=== PATIENT | female | born 1995 | race African-American/Black ===

== ENCOUNTER 2021-05-21 16:11 | Emergency (ER) | payer OTHER ==
[~2021-05-21] VITALS: Ht 165.1 cm; Wt 72.7 kg
[2021-05-21] MEDS ORDERED: METR-265 PO (19:55)
[2021-05-21] MEDS ORDERED: metroNIDAZOLE (FLAGYL) 500MG TABLET PO ONE (19:55)
[2021-05-21 20:00] LABS: URINE PREG TEST NEGATIVE (NEGATIVE)
[2021-05-21 20:01] VITALS: BP 122/74
[2021-05-21 20:07] LABS: GC DNA AMPLIFICATION NEGATIVE (NEGATIVE)
== END 2021-05-21 20:02 | disposition home or self-care (01) ==
LOC: M ED 16:11
DX: A59.01 Trichomonal vulvovaginitis (principal); D57.3 Sickle-cell trait; Z88.0 Allergy status to penicillin; Z88.8 Allergy status to other drugs, medicaments and biological substances

== ENCOUNTER 2021-06-21 10:15 | Emergency (ER) | payer OTHER ==
[~2021-06-21] VITALS: Ht 165.1 cm; Wt 76.6 kg
[~2021-06-21 10:15] MED LIST: METR-265 PO
[2021-06-21] MEDS ORDERED: CURA1CRE2 (11:27)
[2021-06-21 12:41] LABS: BASO # 0.1 10^3/uL (0.0-0.2); BASO % 1.1 % (0.0-1.0); EOS # 0.1 10^3/uL (0.0-0.5); HEMATOCRIT 36.6 % (36.0-47.0); HEMOGLOBIN 12.2 g/dl (12.0-15.5); LYMPH # 1.5 10^3/uL (1.5-5.0); LYMPH % 32.4 % (24.0-44.0); MEAN CORPUSCULAR HEMOGLOBIN 28.4 pg (27.0-33.0); MEAN CORPUSCULAR HGB CONC 33.3 g/dl (32.0-36.5); MEAN CORPUSCULAR VOLUME 85.3 fl (80.0-96.0); MONO # 0.7 10^3/uL (0.0-0.8); MONO % 14.3 % (2.0-8.0); NEUTROPHILS # 2.3 10^3/uL (1.5-8.5); NEUTROPHILS % 49.2 % (36.0-66.0); PLATELET COUNT, AUTOMATED 291 10^3/uL (150-450); RED BLOOD COUNT 4.29 10^6/uL (4.00-5.40); WHITE BLOOD COUNT 4.6 10^3/uL (4.0-10.0)
[2021-06-21 13:16] LABS: ALBUMIN 3.8 GM/DL (3.2-5.2); BILIRUBIN,DIRECT 0.2 MG/DL (0.0-0.2); BILIRUBIN,TOTAL 0.7 MG/DL (0.2-1.0); TOTAL PROTEIN 7.5 GM/DL (6.4-8.2)
[2021-06-21] MEDS ORDERED: VALT1TAB PO (13:23)
[2021-06-21 14:10] VITALS: BP 118/68
== END 2021-06-21 14:10 | disposition home or self-care (01) ==
LOC: M ED 10:15
DX: R59.9 Enlarged lymph nodes, unspecified (principal); B02.9 Zoster without complications; Z88.0 Allergy status to penicillin; Z88.8 Allergy status to other drugs, medicaments and biological substances

== ENCOUNTER 2021-08-27 22:54 | Emergency (ER) | payer OTHER ==
[~2021-08-27] VITALS: Ht 165.1 cm; Wt 75.9 kg
[~2021-08-27 22:54] MED LIST changes: +CURA1CRE2; +VALT1TAB PO
[2021-08-28 00:27] LABS: BASO % 0.5 % (0.0-1.0); EOS # 0.2 10^3/uL (0.0-0.5); EOS % 3.3 % (0.0-3.0); HEMATOCRIT 35.5 % (36.0-47.0); LYMPH # 1.8 10^3/uL (1.5-5.0); LYMPH % 30.9 % (24.0-44.0); MEAN CORPUSCULAR HEMOGLOBIN 29.1 pg (27.0-33.0); MEAN CORPUSCULAR HGB CONC 33.8 g/dl (32.0-36.5); MONO # 0.7 10^3/uL (0.0-0.8); MONO % 11.9 % (2.0-8.0); NEUTROPHILS % 53.2 % (36.0-66.0); PLATELET COUNT, AUTOMATED 253 10^3/uL (150-450); RED BLOOD COUNT 4.13 10^6/uL (4.00-5.40); WHITE BLOOD COUNT 5.7 10^3/uL (4.0-10.0)
[2021-08-28 00:56] LABS: BLOOD UREA NITROGEN 14 MG/DL (7-18); CALCIUM LEVEL 8.9 MG/DL (8.5-10.1); CARBON DIOXIDE LEVEL 28 MEQ/L (21-32); CHLORIDE LEVEL 107 MEQ/L (98-107); GLOMERULAR FILTRATION RATE > 60.0 (>60); GLUCOSE, FASTING 93 MG/DL (70-100); SODIUM LEVEL 140 MEQ/L (136-145)
[2021-08-28 02:00] VITALS: BP 113/58
[2021-08-28] MEDS ORDERED: FLOM0.4C39 PO (02:28)
[2021-08-28] MEDS ORDERED: TRAM50TA2 PO (02:29)
== END 2021-08-28 02:38 | disposition home or self-care (01) ==
LOC: M ED 22:54
DX: D25.9 Leiomyoma of uterus, unspecified (principal); N20.0 Calculus of kidney; Z79.899 Other long term (current) drug therapy; Z88.0 Allergy status to penicillin; Z88.8 Allergy status to other drugs, medicaments and biological substances; F17.210 Nicotine dependence, cigarettes, uncomplicated

== ENCOUNTER 2021-11-07 16:38 | Emergency (ER) | payer OTHER ==
[~2021-11-07] VITALS: Ht 165.1 cm; Wt 73.9 kg
[~2021-11-07 16:38] MED LIST changes: +FLOM0.4C39 PO; +TRAM50TA2 PO
[2021-11-07 18:56] LABS: BASO # 0.1 10^3/uL (0.0-0.2); BASO % 0.9 % (0.0-1.0); EOS # 0.3 10^3/uL (0.0-0.5); EOS % 5.3 % (0.0-3.0); HEMATOCRIT 35.1 % (36.0-47.0); HEMOGLOBIN 11.5 g/dl (12.0-15.5); LYMPH # 2.6 10^3/uL (1.5-5.0); LYMPH % 47.7 % (24.0-44.0); MEAN CORPUSCULAR HEMOGLOBIN 28.1 pg (27.0-33.0); MEAN CORPUSCULAR HGB CONC 32.8 g/dl (32.0-36.5); MEAN CORPUSCULAR VOLUME 85.8 fl (80.0-96.0); MONO # 0.6 10^3/uL (0.0-0.8); MONO % 10.5 % (2.0-8.0); NEUTROPHILS # 1.9 10^3/uL (1.5-8.5); NEUTROPHILS % 35.4 % (36.0-66.0); PLATELET COUNT, AUTOMATED 374 10^3/uL (150-450); RED BLOOD COUNT 4.09 10^6/uL (4.00-5.40); WHITE BLOOD COUNT 5.5 10^3/uL (4.0-10.0)
[2021-11-07 19:13] LABS: HCG, SERUM QUALITATIVE NEGATIVE (NEGATIVE)
[2021-11-07 19:21] LABS: ALBUMIN 3.9 GM/DL (3.2-5.2); ALT/SGPT 45 U/L (12-78); BILIRUBIN,DIRECT 0.2 MG/DL (0.0-0.2); BILIRUBIN,TOTAL 0.8 MG/DL (0.2-1.0); BLOOD UREA NITROGEN 13 MG/DL (7-18); CALCIUM LEVEL 9.3 MG/DL (8.5-10.1); CARBON DIOXIDE LEVEL 25 MEQ/L (21-32); CHLORIDE LEVEL 106 MEQ/L (98-107); CREATININE FOR GFR 0.96 MG/DL (0.55-1.30); GLOMERULAR FILTRATION RATE > 60.0 (>60); GLUCOSE, FASTING 85 MG/DL (70-100); LIPASE 89 U/L (73-393); POTASSIUM SERUM 4.2 MEQ/L (3.5-5.1); SODIUM LEVEL 136 MEQ/L (136-145); TOTAL PROTEIN 7.6 GM/DL (6.4-8.2)
[2021-11-07 20:46] VITALS: BP 127/77
== END 2021-11-07 20:46 | disposition home or self-care (01) ==
LOC: M ED 16:38
DX: D25.9 Leiomyoma of uterus, unspecified (principal); Z88.0 Allergy status to penicillin; Z88.8 Allergy status to other drugs, medicaments and biological substances

== ENCOUNTER 2022-03-19 06:45 | Inpatient (IN) | payer OTHER ==
[~2022-03-19] VITALS: Ht 165.1 cm; Wt 80.2 kg
[2022-03-19] VITALS (8 sets, daily range): BP systolic 98–109; BP diastolic 53–65
[~2022-03-19 06:45] MED LIST changes: +ACETAMINOPHEN *IV* 1,000 MG IV ONE; +CLINDAMYCIN 900 MG in IV 1 EA IV ONE; +GENTAMICIN 100 MG in IV 1 EA IV ONE; +JOINCAP2 PO; +VITMTA PO
[2022-03-19] MEDS ORDERED: BUPIVACAINE HCL 0.5% 10ML VIAL IM ONE ×2 (07:00→07:50)
[2022-03-19] MEDS ORDERED: LIDOCAINE 1% SDV 5ML VIAL PN ONE (07:00)
[2022-03-19] MEDS ORDERED: fentaNYL 100 MCG/2 ML INJECTION IV PRN ×2 (07:00→11:50)
[2022-03-19] MEDS ORDERED: BUPIVACAINE LIPOSOME/PF 1.3% 20ML VIAL (13.3MG/ML)(EXPAREL) PN ONE (07:00)
[2022-03-19] MEDS ORDERED: LR 1,000 ML IV SCH ×2 (07:35→11:50)
[2022-03-19 07:50] LABS: HEMATOCRIT 35.1 % (36.0-47.0); HEMOGLOBIN 11.5 g/dl (12.0-15.5); MEAN CORPUSCULAR HEMOGLOBIN 26.6 pg (27.0-33.0); MEAN CORPUSCULAR HGB CONC 32.8 g/dl (32.0-36.5); MEAN CORPUSCULAR VOLUME 81.3 fl (80.0-96.0); PLATELET COUNT, AUTOMATED 309 10^3/uL (150-450); RED BLOOD COUNT 4.32 10^6/uL (4.00-5.40); WHITE BLOOD COUNT 3.9 10^3/uL (4.0-10.0)
[2022-03-19] MEDS ORDERED: VASOPRESSIN INJ 20UNITS/ML 1ML VIAL As Ordered ONE (08:13)
[2022-03-19] MEDS: MIDAZOLAM INJ 2MG/2ML VIAL (J2250 PER 1MG) IV PRN ×2 (08:16→08:24)
[2022-03-19] MEDS ORDERED: propofoL 200 MG/20 ML VIAL As Ordered ONE (08:28)
[2022-03-19] MEDS ORDERED: LIDOCAINE 2% 100MG/5ML SDV (FOR ANES.) As Ordered ONE (08:29)
[2022-03-19] MEDS ORDERED: ROCURONIUM BROMIDE 50MG/5ML VIAL As Ordered ONE ×2 (08:29→09:03)
[2022-03-19] MEDS ORDERED: fentaNYL 100 MCG/2 ML INJECTION As Ordered ONE (08:30)
[2022-03-19] MEDS ORDERED: ONDANSETRON 4MG 2ML VIAL As Ordered ONE (08:51)
[2022-03-19] MEDS ORDERED: ACETAMINOPHEN 1000MG 100ML IV BAG As Ordered ONE (08:53)
[2022-03-19] MEDS ORDERED: SUGAMMADEX SODIUM 500 MG/5 ML VIAL (BRIDION) As Ordered ONE (08:53)
[2022-03-19] MEDS ORDERED: ePHEDrine SULFATE 25 MG/5 ML(5MG/ML) SYRINGE As Ordered ONE (09:46)
[2022-03-19] MEDS ORDERED: oxyCODONE 5MG TAB PO PRN ×3 (11:50)
[2022-03-19] MEDS ORDERED: METOCLOPRAMIDE INJ 10MG/2ML VIAL IV PRN (11:50)
[2022-03-19] MEDS ORDERED: ONDANSETRON 4MG 2ML VIAL IV PRN ×2 (11:50)
[2022-03-19] MEDS ORDERED: PROMETHAZINE 25MG/ML 1ML VIAL IV PRN (11:50)
[2022-03-19] MEDS ORDERED: EPIDURAL/PCA KEYS XX PRN (12:00)
[2022-03-19] MEDS ORDERED: diphenhydrAMINE 50MG/ML VIAL IV PRN (12:00)
[2022-03-19] MEDS: HYDROMORPHONE HCL 0.5 MG/ 0.5 ML SYRINGE (J1170 PER 1) IV PRN ×2 (12:00→12:13)
[2022-03-19] MEDS ORDERED: NALOXONE INJ 0.4MG/1ML VIAL IV PRN (12:00)
[2022-03-19] MEDS: LR 1,000 ML IV SCH ×2 (13:43→21:27)
[2022-03-19] MEDS ORDERED: MORPHINE 1MG/ML IN 0.9% NACL 100ML IV BAG IV PRN (14:00)
[2022-03-19] MEDS ORDERED: ACETAMINOPHEN 1000MG 100ML IV BAG IV SCH (16:00)
[2022-03-19] MEDS: GABAPENTIN 300 MG CAP PO SCH ×2 (16:09→21:26)
[2022-03-19] MEDS: ACETAMINOPHEN *IV* 1,000 MG IV SCH ×4 (16:10→22:59)
[2022-03-19 18:02] LABS: HIV 1&2 SCREEN CENTAUR NEGATIVE (NEGATIVE)
[2022-03-19 18:09] LABS: HEPATITIS C VIRUS ABY INDEX 0.1 INDEX (<0.8)
[2022-03-19] MEDS: DOCUSATE SODIUM 100MG CAPSULE PO SCH (21:26)
[2022-03-20] VITALS: BP 97/53
[2022-03-20 04:00] VITALS: BP 106/56
[2022-03-20] MEDS: ACETAMINOPHEN *IV* 1,000 MG IV SCH ×2 (04:00)
[2022-03-20] MEDS: LR 1,000 ML IV SCH (04:26)
[2022-03-20 07:58] LABS: BASO % 0.2 % (0.0-1.0); EOS % 0.1 % (0.0-3.0); HEMATOCRIT 29.6 % (36.0-47.0); HEMOGLOBIN 9.7 g/dl (12.0-15.5); LYMPH # 1.9 10^3/uL (1.5-5.0); MEAN CORPUSCULAR HEMOGLOBIN 27.1 pg (27.0-33.0); MEAN CORPUSCULAR HGB CONC 32.8 g/dl (32.0-36.5); MEAN CORPUSCULAR VOLUME 82.7 fl (80.0-96.0); MONO # 1.2 10^3/uL (0.0-0.8); MONO % 9.1 % (2.0-8.0); NEUTROPHILS # 9.6 10^3/uL (1.5-8.5); NEUTROPHILS % 75.2 % (36.0-66.0); PLATELET COUNT, AUTOMATED 289 10^3/uL (150-450); RED BLOOD COUNT 3.58 10^6/uL (4.00-5.40); WHITE BLOOD COUNT 12.8 10^3/uL (4.0-10.0)
[2022-03-20 08:00] VITALS: BP 102/67
[2022-03-20] MEDS: GABAPENTIN 300 MG CAP PO SCH ×3 (08:31→20:12)
[2022-03-20] MEDS: DOCUSATE SODIUM 100MG CAPSULE PO SCH ×2 (08:31→20:12)
[2022-03-20] MEDS ORDERED: ONDANSETRON 4MG ORAL DISINTEGRATING TAB PO PRN (09:00)
[2022-03-20] MEDS ORDERED: HYDROmorphone 2 MG TAB PO PRN ×2 (09:00)
[2022-03-20] MEDS ORDERED: oxyCODONE 5MG TAB PO PRN (09:35)
[2022-03-20] MEDS: oxyCODONE 5MG TAB PO PRN ×2 (10:28→17:28)
[2022-03-20] MEDS: SIMETHICONE 80MG CHEW TAB PO PRN ×2 (11:28→16:29)
[2022-03-20] MEDS: ACETAMINOPHEN 500 MG TAB PO SCH ×3 (11:28→23:54)
[2022-03-20 12:00] VITALS: BP 102/63
[2022-03-20] MEDS ORDERED: oxyCODONE 5MG TAB PO ONE (12:35)
[2022-03-20 16:00] VITALS: BP 103/58
[2022-03-20 20:00] VITALS: BP 114/66
[2022-03-21] VITALS: BP 105/56
[2022-03-21 04:00] VITALS: BP 109/74
[2022-03-21] MEDS: ACETAMINOPHEN 500 MG TAB PO SCH (05:05)
[2022-03-21 08:00] VITALS: BP 112/58
[2022-03-21] MEDS: GABAPENTIN 300 MG CAP PO SCH (08:19)
[2022-03-21] MEDS: DOCUSATE SODIUM 100MG CAPSULE PO SCH (08:19)
[2022-03-21] MEDS: SIMETHICONE 80MG CHEW TAB PO PRN (08:19)
[2022-03-21] MEDS ORDERED: OXYC-517 PO (11:26)
[2022-03-21] MEDS ORDERED: ACET-683 PO (11:26)
[2022-03-21] MEDS ORDERED: GABA-282 PO (11:26)
== END 2022-03-21 12:30 | disposition home or self-care (01) | DRG 743 ==
LOC: M OR 06:45 → EDSTATUS 08:30 → M PED 13:45
PROVIDERS: ADMIT Obstetrics & Gynecology; ATTEND Obstetrics & Gynecology
PROC: 0UB90ZZ Excision of Uterus, Open Approach (ICD-10-PCS; principal; 2022-03-19 08:30)
DX: D25.9 Leiomyoma of uterus, unspecified (principal); Z88.0 Allergy status to penicillin; Z88.6 Allergy status to analgesic agent

== ENCOUNTER 2022-07-14 16:45 | Emergency (ER) | payer OTHER ==
[~2022-07-14] VITALS: Ht 165.1 cm; Wt 79.1 kg
[2022-07-14 16:45] VITALS: BP 119/75
[~2022-07-14 16:45] MED LIST changes: +ACET-683 PO; -ACETAMINOPHEN *IV* 1,000 MG IV ONE; -CLINDAMYCIN 900 MG in IV 1 EA IV ONE; +GABA-282 PO; -GENTAMICIN 100 MG in IV 1 EA IV ONE; +OXYC-517 PO
[2022-07-14] MEDS ORDERED: D 50CAP2 (16:52)
[2022-07-14 18:01] LABS: BASO % 0.7 % (0.0-1.0); EOS # 0.1 10^3/uL (0.0-0.5); EOS % 1.3 % (0.0-3.0); HEMATOCRIT 38.8 % (36.0-47.0); HEMOGLOBIN 12.4 g/dl (12.0-15.5); LYMPH # 2.1 10^3/uL (1.5-5.0); LYMPH % 34.2 % (24.0-44.0); MEAN CORPUSCULAR HEMOGLOBIN 24.8 pg (27.0-33.0); MEAN CORPUSCULAR VOLUME 77.6 fl (80.0-96.0); MONO # 0.5 10^3/uL (0.0-0.8); MONO % 8.8 % (2.0-8.0); NEUTROPHILS # 3.3 10^3/uL (1.5-8.5); NEUTROPHILS % 54.7 % (36.0-66.0); PLATELET COUNT, AUTOMATED 385 10^3/uL (150-450)
[2022-07-14 18:32] LABS: ALBUMIN 4.2 G/DL (3.2-5.2); ALKALINE PHOSPHATASE 96 U/L (46-116); ALT/SGPT 92 U/L (7.0-40); AST/SGOT 77 U/L (<34); BILIRUBIN,DIRECT 0.2 MG/DL (<0.4); BLOOD UREA NITROGEN 8 MG/DL (9-23); CALCIUM LEVEL 9.1 MG/DL (8.5-10.1); CARBON DIOXIDE LEVEL 26 MMOL/L (20-31); CHLORIDE LEVEL 103 MMOL/L (98-107); CREATININE FOR GFR 0.78 MG/DL (0.55-1.30); GLOMERULAR FILTRATION RATE > 60.0 (>60); GLUCOSE, FASTING 89 MG/DL (60-100); LIPASE 28 U/L (12-53); SODIUM LEVEL 137 MMOL/L (136-145); TOTAL PROTEIN 8.5 G/DL (5.7-8.2)
[2022-07-14 18:43] LABS: HCG, SERUM QUALITATIVE NEGATIVE (NEGATIVE)
[2022-07-14] MEDS ORDERED: ONDANSETRON 4MG 2ML VIAL IV ONE (19:15)
[2022-07-14] MEDS ORDERED: ISOVUE-370 76% 100ML VIAL As Ordered ONE (19:21)
[2022-07-14 19:32] LABS: RSV AMPLIFICATION NEGATIVE (NEGATIVE)
[2022-07-14] MEDS: MORPHINE 2 MG/ML 1ML VIAL IV PRN ×2 (19:55→21:19)
[2022-07-14] MEDS ORDERED: PERCOCET 5MG/325MG TAB PO ONE (20:30)
[2022-07-14 22:53] LABS: GC DNA AMPLIFICATION NEGATIVE (NEGATIVE)
== END 2022-07-14 23:41 | disposition home or self-care (01) ==
LOC: M ED 16:45
DX: R10.2 Pelvic and perineal pain (principal); D25.9 Leiomyoma of uterus, unspecified; D57.3 Sickle-cell trait; Z88.0 Allergy status to penicillin; Z88.6 Allergy status to analgesic agent
CPT/HCPCS: 36415; 74177; 76830; 76856; 80048; 80076; 81001; 83605; 83690; 84703; 85025; 87210; 87631; 87661; 87810; 87850; 93041; 93976; 96365; 96366; 96375; 99284; Q9967

== ENCOUNTER 2022-08-01 21:26 | Emergency (ER) | payer OTHER ==
[~2022-08-01] VITALS: Ht 165.1 cm; Wt 75.5 kg
[~2022-08-01 21:26] MED LIST changes: +D 50CAP2
[2022-08-01 21:27] VITALS: BP 127/83
== END 2022-08-02 01:16 | disposition left against medical advice (07) ==
LOC: M ED 21:26
DX: G43.909 Migraine, unspecified, not intractable, without status migrainosus (principal); Z53.21 Procedure and treatment not carried out due to patient leaving prior to being seen by health care provider

== ENCOUNTER 2022-08-10 09:32 | Emergency (ER) | payer OTHER ==
[~2022-08-10] VITALS: Ht 165.1 cm; Wt 76.0 kg
[2022-08-10] MEDS ORDERED: VITMTA PO (09:47)
[2022-08-10] MEDS ORDERED: ACETAMINOPHEN TAB 650MG DOSE (2X325MG) PO ONE (10:45)
[2022-08-10 11:17] LABS: BASO # 0.1 10^3/uL (0.0-0.2); BASO % 0.9 % (0.0-1.0); EOS % 0.5 % (0.0-3.0); HEMATOCRIT 37.9 % (36.0-47.0); HEMOGLOBIN 12.1 g/dl (12.0-15.5); LYMPH # 1.3 10^3/uL (1.5-5.0); LYMPH % 23.7 % (24.0-44.0); MEAN CORPUSCULAR HEMOGLOBIN 24.6 pg (27.0-33.0); MEAN CORPUSCULAR HGB CONC 31.9 g/dl (32.0-36.5); MONO # 0.5 10^3/uL (0.0-0.8); MONO % 8.8 % (2.0-8.0); NEUTROPHILS # 3.7 10^3/uL (1.5-8.5); NEUTROPHILS % 65.9 % (36.0-66.0); PLATELET COUNT, AUTOMATED 385 10^3/uL (150-450); RED BLOOD COUNT 4.92 10^6/uL (4.00-5.40); WHITE BLOOD COUNT 5.6 10^3/uL (4.0-10.0)
[2022-08-10 11:46] LABS: ALBUMIN 4.4 G/DL (3.2-5.2); ALKALINE PHOSPHATASE 146 U/L (46-116); ALT/SGPT 154 U/L (7.0-40); AST/SGOT 69 U/L (<34); BILIRUBIN,TOTAL 1.7 MG/DL (0.3-1.2); BLOOD UREA NITROGEN 7 MG/DL (9-23); CALCIUM LEVEL 9.9 MG/DL (8.5-10.1); CARBON DIOXIDE LEVEL 25 MMOL/L (20-31); CHLORIDE LEVEL 104 MMOL/L (98-107); CREATININE FOR GFR 0.83 MG/DL (0.55-1.30); GLOMERULAR FILTRATION RATE > 60.0 (>60); GLUCOSE, FASTING 78 MG/DL (60-100); PHOSPHORUS LEVEL 4.2 MG/DL (2.5-4.9); POTASSIUM SERUM 4.5 MMOL/L (3.5-5.1); SODIUM LEVEL 137 MMOL/L (136-145); TOTAL PROTEIN 8.1 G/DL (5.7-8.2)
[2022-08-10 11:48] LABS: THYROID STIMULATING HORMONE 0.725 uIU/ML (0.55-4.78)
[2022-08-10] MEDS ORDERED: ISOVUE-370 76% 100ML VIAL As Ordered ONE (12:12)
[2022-08-10 12:53] VITALS: BP 132/76
== END 2022-08-10 12:55 | disposition home or self-care (01) ==
LOC: M ED 09:32
DX: F41.9 Anxiety disorder, unspecified (principal); D25.9 Leiomyoma of uterus, unspecified; K76.0 Fatty (change of) liver, not elsewhere classified; Z88.5 Allergy status to narcotic agent; Z88.0 Allergy status to penicillin; Z79.899 Other long term (current) drug therapy
CPT/HCPCS: 36415; 74177; 76856; 80053; 81001; 83735; 84100; 84443; 85025; 99284; Q9967

== ENCOUNTER 2022-10-01 02:04 | Emergency (ER) | payer OTHER ==
[~2022-10-01] VITALS: Ht 165.1 cm; Wt 72.7 kg
[2022-10-01 08:58] LABS: BASO % 0.6 % (0.0-1.0); EOS # 0.1 10^3/uL (0.0-0.5); EOS % 2.2 % (0.0-3.0); HEMATOCRIT 36.9 % (36.0-47.0); HEMOGLOBIN 11.9 g/dl (12.0-15.5); LYMPH # 1.7 10^3/uL (1.5-5.0); LYMPH % 32.2 % (24.0-44.0); MEAN CORPUSCULAR HEMOGLOBIN 25.6 pg (27.0-33.0); MEAN CORPUSCULAR HGB CONC 32.2 g/dl (32.0-36.5); MEAN CORPUSCULAR VOLUME 79.4 fl (80.0-96.0); MONO # 0.6 10^3/uL (0.0-0.8); MONO % 10.8 % (2.0-8.0); NEUTROPHILS # 2.9 10^3/uL (1.5-8.5); NEUTROPHILS % 53.8 % (36.0-66.0); PLATELET COUNT, AUTOMATED 373 10^3/uL (150-450); RED BLOOD COUNT 4.65 10^6/uL (4.00-5.40); WHITE BLOOD COUNT 5.4 10^3/uL (4.0-10.0)
[2022-10-01 09:30] LABS: ALBUMIN 4.4 G/DL (3.2-5.2); ALKALINE PHOSPHATASE 221 U/L (46-116); ALT/SGPT 228 U/L (7.0-40); AST/SGOT 236 U/L (<34); BILIRUBIN,DIRECT 0.2 MG/DL (<0.4); BILIRUBIN,TOTAL 0.7 MG/DL (0.3-1.2); BLOOD UREA NITROGEN 10 MG/DL (9-23); CALCIUM LEVEL 10.6 MG/DL (8.5-10.1); CARBON DIOXIDE LEVEL 24 MMOL/L (20-31); CHLORIDE LEVEL 104 MMOL/L (98-107); CREATININE FOR GFR 0.68 MG/DL (0.55-1.30); GLOMERULAR FILTRATION RATE > 60.0 (>60); GLUCOSE, FASTING 81 MG/DL (60-100); POTASSIUM SERUM 4.7 MMOL/L (3.5-5.1); SODIUM LEVEL 138 MMOL/L (136-145); TOTAL PROTEIN 8.3 G/DL (5.7-8.2)
[2022-10-01 09:59] LABS: ACETAMINOPHEN LEVEL < 2.0 UG/ML (10.0-20.0)
[2022-10-01 10:19] LABS: HEPATITIS B SURFACE ANTIGEN NEGATIVE (NEGATIVE)
[2022-10-01 10:40] LABS: HEPATITIS B CORE ANTIBODY IGM NEGATIVE (NEGATIVE); HEPATITIS C VIRUS ABY INDEX 0.07 INDEX (<0.8)
[2022-10-01 11:50] VITALS: BP 117/74; TEMP 98.2; O2SAT 100
== END 2022-10-01 11:54 | disposition home or self-care (01) ==
LOC: M ED 02:04
DX: R10.9 Unspecified abdominal pain (principal); K75.81 Nonalcoholic steatohepatitis (NASH); R74.01 Elevation of levels of liver transaminase levels; Z88.6 Allergy status to analgesic agent; Z88.0 Allergy status to penicillin; Z79.899 Other long term (current) drug therapy

== ENCOUNTER → 2022-11-28 | Outpatient (CLI) | payer OTHER | LOC: M RAD 07:46 | PROVIDERS: ATTEND Internal Medicine Gastroenterology | DX: R79.89 Other specified abnormal findings of blood chemistry (principal); R10.9 Unspecified abdominal pain ==

== ENCOUNTER → 2023-05-07 | Outpatient (CLI) | payer OTHER ==
[~2023-05-07] VITALS: Ht 162.6 cm; Wt 73.0 kg
[~2023-05-07] MED LIST changes: +ALBUTEROL SULFATE 2.5MG/0.5ML INH NEB SOLN INH PRN; +EPINEPHrine INJ 1 MG/ML 1ML AMP IM PRN; +NS 1,000 ML IV SCH; +diphenhydrAMINE 50MG/ML VIAL IV PRN; +methylPREDNISolone 125MG 2ML VIAL IV PRN
[2023-05-07 08:28] VITALS: BP 118/55; O2SAT 100
[2023-05-07] MEDS: IRON SUCROSE 25 MG in NS 23.75 ML IV ONE (09:05)
[2023-05-07] MEDS: IRON SUCROSE 275 MG in NS 250 ML IV ONE (09:57)
[2023-05-07 10:00] VITALS: BP 117/70; O2SAT 100
[2023-05-07 11:34] VITALS: BP 121/79; O2SAT 98
== END ==
LOC: M INFU 08:25
PROVIDERS: ATTEND Obstetrics & Gynecology
DX: D64.9 Anemia, unspecified (principal); Z88.0 Allergy status to penicillin; Z88.6 Allergy status to analgesic agent
CPT/HCPCS: 96365; 96366; J1756

== ENCOUNTER → 2023-05-12 | Outpatient (CLI) | payer OTHER ==
[~2023-05-12] MED LIST changes: -ALBUTEROL SULFATE 2.5MG/0.5ML INH NEB SOLN INH PRN; +E-Z-GAS II EFFERVESCENT PACKET (SODIUM BICARB./CITRIC ACID/SIMETHICONE) As Ordered ONE; +E-Z-HD 98% w/w 340GM SUSP BTL As Ordered ONE; +E-Z-PAQUE 96% w/w SUSP 176GM BTL As Ordered ONE; -EPINEPHrine INJ 1 MG/ML 1ML AMP IM PRN; -NS 1,000 ML IV SCH; -diphenhydrAMINE 50MG/ML VIAL IV PRN; -methylPREDNISolone 125MG 2ML VIAL IV PRN
== END ==
LOC: M RAD 09:07
PROVIDERS: ATTEND Physician Assistant
DX: K21.9 Gastro-esophageal reflux disease without esophagitis (principal)

== ENCOUNTER 2023-05-14 08:00 | Outpatient (CLI) | payer OTHER ==
[~2023-05-14] VITALS: Ht 162.6 cm; Wt 73.0 kg
[2023-05-14] MEDS: NS 1,000 ML IV SCH (06:00)
[~2023-05-14 08:00] MED LIST changes: +ALBUTEROL SULFATE 2.5MG/0.5ML INH NEB SOLN INH PRN; -E-Z-GAS II EFFERVESCENT PACKET (SODIUM BICARB./CITRIC ACID/SIMETHICONE) As Ordered ONE; -E-Z-HD 98% w/w 340GM SUSP BTL As Ordered ONE; -E-Z-PAQUE 96% w/w SUSP 176GM BTL As Ordered ONE; +EPINEPHrine INJ 1 MG/ML 1ML AMP IM PRN; +diphenhydrAMINE 50MG/ML VIAL IV PRN; +methylPREDNISolone 125MG 2ML VIAL IV PRN
[2023-05-14 08:05] VITALS: BP 111/57; O2SAT 100
[2023-05-14] MEDS: IRON SUCROSE 300 MG in NS 250 ML OVER 90 MIN. IV ONE (08:45)
[2023-05-14 10:30] VITALS: BP 119/75; O2SAT 98
== END 2023-05-14 10:30 | disposition home or self-care (01) ==
LOC: M INFU 08:00
PROVIDERS: ATTEND Obstetrics & Gynecology
DX: D64.9 Anemia, unspecified (principal); Z88.0 Allergy status to penicillin; Z88.6 Allergy status to analgesic agent
CPT/HCPCS: 96365; J1756

== ENCOUNTER 2023-05-21 08:00 | Outpatient (CLI) | payer OTHER ==
[~2023-05-21] VITALS: Ht 161 cm; Wt 73.0 kg
[~2023-05-21 08:00] MED LIST changes: +NS 1,000 ML IV SCH
[2023-05-21] MEDS: IRON SUCROSE 300 MG in NS 250 ML OVER 90 MIN. IV ONE (08:01)
[2023-05-21 08:13] VITALS: BP 133/63; O2SAT 100
[2023-05-21 10:00] VITALS: BP 132/76; O2SAT 100
== END 2023-05-21 09:50 ==
LOC: M INFU 08:00
PROVIDERS: ATTEND Obstetrics & Gynecology
DX: D64.9 Anemia, unspecified (principal); Z88.6 Allergy status to analgesic agent; Z88.0 Allergy status to penicillin
CPT/HCPCS: 96365; J1756

== ENCOUNTER → 2023-05-27 | Outpatient (CLI) | payer OTHER ==
[~2023-05-27] MED LIST changes: -ALBUTEROL SULFATE 2.5MG/0.5ML INH NEB SOLN INH PRN; -EPINEPHrine INJ 1 MG/ML 1ML AMP IM PRN; -NS 1,000 ML IV SCH; +PANT40TA29 PO; -diphenhydrAMINE 50MG/ML VIAL IV PRN; -methylPREDNISolone 125MG 2ML VIAL IV PRN
== END ==
LOC: M RAD 11:37
PROVIDERS: ATTEND Physician Assistant
DX: R10.84 Generalized abdominal pain (principal); R11.0 Nausea
CPT/HCPCS: 78227; A9537

== ENCOUNTER 2023-05-29 10:57 | Emergency (ER) | payer OTHER ==
[~2023-05-29] VITALS: Ht 165.1 cm; Wt 74.5 kg
[~2023-05-29 10:57] MED LIST changes: -PANT40TA29 PO
[2023-05-29] MEDS ORDERED: PANT40TA29 PO (11:03)
[2023-05-29 11:55] LABS: EOS # 0.1 10^3/uL (0.0-0.5); EOS % 2.4 % (0.0-3.0); HEMOGLOBIN 12.7 g/dl (12.0-15.5); LYMPH # 1.6 10^3/uL (1.5-5.0); LYMPH % 38.9 % (24.0-44.0); MEAN CORPUSCULAR HEMOGLOBIN 27.7 pg (27.0-33.0); MEAN CORPUSCULAR HGB CONC 33.4 g/dl (32.0-36.5); MEAN CORPUSCULAR VOLUME 82.8 fl (80.0-96.0); MONO # 0.5 10^3/uL (0.0-0.8); MONO % 12.3 % (2.0-8.0); NEUTROPHILS # 1.9 10^3/uL (1.5-8.5); NEUTROPHILS % 45.2 % (36.0-66.0); PLATELET COUNT, AUTOMATED 298 10^3/uL (150-450); RED BLOOD COUNT 4.59 10^6/uL (4.00-5.40); WHITE BLOOD COUNT 4.1 10^3/uL (4.0-10.0)
[2023-05-29 12:23] LABS: BLOOD UREA NITROGEN 9 MG/DL (9-23); CALCIUM LEVEL 8.4 MG/DL (8.5-10.1); CARBON DIOXIDE LEVEL 27 MMOL/L (20-31); CHLORIDE LEVEL 107 MMOL/L (98-107); CREATININE FOR GFR 0.82 MG/DL (0.55-1.30); GLOMERULAR FILTRATION RATE > 60.0 (>60); GLUCOSE, FASTING 84 MG/DL (60-100); SODIUM LEVEL 139 MMOL/L (136-145)
[2023-05-29 12:43] LABS: HCG, SERUM QUALITATIVE NEGATIVE (NEGATIVE)
[2023-05-29 13:52] VITALS: BP 116/68; TEMP 97.8; O2SAT 100
== END 2023-05-29 13:53 | disposition home or self-care (01) ==
LOC: M ED 10:57
DX: N92.0 Excessive and frequent menstruation with regular cycle (principal); K21.9 Gastro-esophageal reflux disease without esophagitis; R51.9 Headache, unspecified; Z88.8 Allergy status to other drugs, medicaments and biological substances; Z88.0 Allergy status to penicillin; Z79.899 Other long term (current) drug therapy

== ENCOUNTER 2023-07-08 06:07 | Day surgery (SDC) | payer OTHER ==
[~2023-07-08] VITALS: Ht 165.1 cm; Wt 75.6 kg
[~2023-07-08 06:07] MED LIST changes: +LEXA1TAB PO; +LINZ72CA PO; +PANT40TA29 PO; +PRENTAB53 PO; +TRAN650T PO
[2023-07-08] MEDS: LR 1,000 ML IV SCH (06:47)
[2023-07-08 07:03] LABS: HEMATOCRIT 41.1 % (36.0-47.0); HEMOGLOBIN 13.8 g/dl (12.0-15.5)
[2023-07-08] MEDS ORDERED: KETOROLAC 60MG 2ML VIAL As Ordered ONE (07:11)
[2023-07-08] MEDS ORDERED: MIDAZOLAM INJ 2MG/2ML VIAL As Ordered ONE (07:11)
[2023-07-08] MEDS ORDERED: dexmedeTOMIDine (4MCG/ML)200MCG/50ML BTL (PRECEDEX) As Ordered ONE (07:11)
[2023-07-08] MEDS ORDERED: SUGAMMADEX SODIUM 500 MG/5 ML VIAL (BRIDION) As Ordered ONE (07:11)
[2023-07-08] MEDS ORDERED: ROCURONIUM BROMIDE 50MG/5ML VIAL As Ordered ONE (07:11)
[2023-07-08] MEDS ORDERED: ONDANSETRON 4MG 2ML VIAL As Ordered ONE (07:11)
[2023-07-08] MEDS ORDERED: propofoL 200 MG/20 ML VIAL As Ordered ONE (07:11)
[2023-07-08] MEDS ORDERED: LIDOCAINE 2% 100MG/5ML SDV (FOR ANES.) As Ordered ONE (07:11)
[2023-07-08] MEDS ORDERED: fentaNYL 100 MCG/2 ML INJECTION As Ordered ONE (07:11)
[2023-07-08] MEDS ORDERED: SILVER NITRATE APPLICATOR (1 = QTY 10) As Ordered ONE (07:17)
[2023-07-08] MEDS ORDERED: ePHEDrine SULFATE 25 MG/5 ML(5MG/ML) SYRINGE As Ordered ONE (07:20)
[2023-07-08] MEDS ORDERED: PHENYLephrine 500MCG 5ML (100MCG/ML) SYRINGE As Ordered ONE (07:20)
[2023-07-08] MEDS ORDERED: ACETAMINOPHEN 1000MG 100ML IV BAG As Ordered ONE (08:06)
[2023-07-08] MEDS ORDERED: HYDROmorphone HCL 2MG/ML 1ML VIAL As Ordered ONE (08:27)
[2023-07-08] MEDS: METHYLENE BLUE 0.5% (5MG/ML) 10 ML AMP (PROVAYBLUE) As Ordered ONE (08:40)
[2023-07-08] MEDS: LIDOCAINE 1% SDV 30ML VIAL As Ordered ONE (09:00)
[2023-07-08] MEDS ORDERED: ONDANSETRON 4MG 2ML VIAL IV PRN (09:20)
[2023-07-08] MEDS ORDERED: fentaNYL 100 MCG/2 ML INJECTION IV PRN (09:20)
[2023-07-08] MEDS ORDERED: LR 1,000 ML IV SCH (09:20)
[2023-07-08] MEDS ORDERED: HYDROMORPHONE HCL 0.5 MG/ 0.5 ML SYRINGE IV PRN (09:20)
[2023-07-08] MEDS: oxyCODONE 5MG TAB PO PRN (09:59)
[2023-07-08 11:10] VITALS: BP 99/56; TEMP 97.5; O2SAT 100
[2023-07-09] MEDS ORDERED: UNRESOLVED CLARIFICATION ENTRY XX SCH (00:01)
== END 2023-07-08 11:10 | disposition home or self-care (01) ==
LOC: M SDC 06:07
PROVIDERS: ATTEND Obstetrics & Gynecology
DX: N80.00 Endometriosis of the uterus, unspecified (principal); N80.3B2 Deep endometriosis of the left uterosacral ligament; N80.C19 Endometriosis of the anterior abdominal wall, unspecified depth; D25.9 Leiomyoma of uterus, unspecified; N73.6 Female pelvic peritoneal adhesions (postinfective); R10.2 Pelvic and perineal pain; Z88.0 Allergy status to penicillin; Z88.8 Allergy status to other drugs, medicaments and biological substances; Z72.0 Tobacco use
CPT/HCPCS: 36415; 58350; 58662; 81025; 85014; 85018; 88305; J0131; J0665; J1100; J1170; J2250; J2371; J2405; J3010; Q9968

== ENCOUNTER → 2023-08-20 | Outpatient (CLI) | payer OTHER | LOC: M RAD 06:32 | PROVIDERS: ATTEND Physician Assistant | DX: R79.89 Other specified abnormal findings of blood chemistry (principal) ==